=== PATIENT | male | born 1995 ===

== ENCOUNTER 2017-01-28 14:39 | Emergency (ER) | payer OTHER ==
[2017-01-28] MEDS ORDERED: CEPHALEXIN MONOHYDRATE 250 MG CAPSULE PO ONE (17:13)
--- NOTE | 2017-01-28 17:26 | ER PHYSICIAN DOCUMENTATION ---
Physician Documentation [facility] Name:Roman Hopkins Age:21 yrs Sex:Male :1995 Arrival Date:01/28/2017 Time:14:39 Bed1 Private MD: Andrea Earl Disposition: 01/28 18:00 Chart complete. tl1 Disposition: 01/28/17 16:47 Discharged to Home/Self Care. Impression: Tendon Injury. - Condition is Good. - Discharge Instructions: TENDON LACERATION - LACERATION, Tendon. - Prescriptions for Keflex 500 mg Oral - take 1 capsule by ORAL route every 8 hours for 5 days; 15 capsule. - Medical Reconciliation form form. - Follow up: Private Physician; When: 2 - 3 days; Reason: Recheck today's complaints, Continuance of care. - Problem is new. - Symptoms have improved. - Notes: GO TO [facility] AT 7 AM [facility] TO REPAIR YOUR TENDONS AT [address] KIP GOMEZ. THE OPERATING ROOM NUMBER IS [phone]. [facility], WHERE DR GOMEZ PRACTICES PHONE NUMBER IS [phone] HPI: 15:00 This 21 yrs old Unknown Male presents to ER via Private Vehicle with complaints of tl1 Finger Injury. 15:00 The patient or guardian reports a laceration, clean, 2 cm(s). The complaints affect the tl1 palmar aspect of proximal phalanx of right little finger. Context: The problem was sustained at work, resulted from Cutting a lemon with a knife.. Onset: The symptom(s)/episode began/occurred suddenly, just prior to arrival. Historical: - Allergies: No known drug Allergies; - Home Meds: 1. None - PMHx: None; - PSHx: None; - Tetanus: unknown Other pt is from [facility]. . - Ebola Screening: : Patient denies exposure to infectious person. Patient denies travel to an Ebola-affected area in the 21 days before illness onset. . - Immunization history: UTD. - Social history: Smoking status: Patient uses tobacco products, current some day smoker. Patient uses alcohol occasionally. Patient/guardian denies using marijuana. ROS: 15:00 MS/extremity: Positive for injury or acute deformity, laceration. tl1 15:00 All other systems are negative. Exam: 15:00 Constitutional: This is a well developed, well nourished patient who is awake, alert, tl1 and in no acute distress. 15:00 Cardiovascular: Rate: normal. 15:00 Respiratory: the patient does not display signs of respiratory distress. 15:00 Musculoskeletal/extremity: Extremities: grossly normal except: noted in the palmar aspect of middle phalanx of right little finger: laceration, BOTH TENDONS lacerated. He cannot flex at the PIP joint. He has no sensation to light touch on the ulnar aspect of his right fifth finger from the PIP distally and no 2 point discrimination. Sensation is normal on the radial aspect of that finger.. 15:00 Skin: injury, laceration(s), that can be described as clean, no foreign body, linear, with mild bleeding. Vital Signs: 14:43 BP 163 / 86; Pulse 83; Resp 16; Pulse Ox 94% on R/A; Pain 1/10; st Laceration: 16:00 Wound Repair of 2cm ( 0.8in ) subcutaneous laceration to palmar aspect of middle tl1 phalanx of right little finger. Linear shaped.. Distal neuro/vascular/tendon intact. Anesthesia: Digital block administered with 3 mls of 0.5% marcaine. Wound prep: Extensive cleansing, Copious irrigation. Skin closed with 4-0 Nylon using Interrupted sutures. Dressed with Bacitracin, tube gauze. Patient tolerated well. MDM: 15:00 Patient medically screened. tl1 16:00 Data reviewed: vital signs, nurses notes, and as a result, I will discharge patient. tl1 Counseling: I had a detailed discussion with the patient and/or guardian regarding: the historical points, exam findings, and any diagnostic results supporting the discharge/admit diagnosis, the need for outpatient follow up, for a referral to a specialist, a hand specialist, to return to the emergency department if symptoms worsen or persist or if there are any questions or concerns that arise at home. Response to treatment: the patient's symptoms have mildly improved after treatment, and as a result, I will discharge patient. Dispensed Medications: 17:05 Drug: Keflex 500 mg; Route: PO; st 17:26 Follow up: Response: No adverse reaction st Signatures: Twombly, Summer, RN RN st Elisabeth, Andrea, MD MD tl1
--- NOTE | 2017-01-28 17:26 | ER NURSING DOCUMENTATION ---
Nurse's Notes [facility] Name:Roman Hopkins Age:21 yrs Sex:Male :1995 Arrival Date:01/28/2017 Time:14:39 Bed1 Private MD: Diagnosis:Tendon Injury Presentation: 01/28 14:40 Presenting complaint: Patient states: pt was pealing a lemon with a knife and slipped st cutting his right pinky. Transition of care: Home. 14:40 Acuity: FIORELLA 3 st 14:40 Method Of Arrival: Private Vehicle st Triage Assessment: 14:42 General: Appears in no apparent distress, Behavior is cooperative. Pain: Complains of st pain in palmar aspect of middle phalanx of right little finger Pain currently is 1 out of 10 on a pain scale. Cardiovascular: No deficits noted. Respiratory: No deficits noted. GI: No deficits noted. Musculoskeletal: pt has feeling distal to the cut however he can not bend that finger. Injury Description: Laceration sustained to palmar aspect of middle phalanx of right little finger is full thickness, 0.5 to 2.5 cm long, bleeding moderately. Historical: - Allergies: No known drug Allergies; - Home Meds: 1. None - PMHx: None; - PSHx: None; - Tetanus: unknown Other pt is from [facility]. . - Ebola Screening: : Patient denies exposure to infectious person. Patient denies travel to an Ebola-affected area in the 21 days before illness onset. . - Immunization history: UTD. - Social history: Smoking status: Patient uses tobacco products, current some day smoker. Patient uses alcohol occasionally. Patient/guardian denies using marijuana. Screenin:44 Infectious Disease Risk None. Abuse screen: Denies threats or abuse. Denies injuries st from another. pt feels safe at home. Nutritional screening: No deficits noted. Vital Signs: 14:43 BP 163 / 86; Pulse 83; Resp 16; Pulse Ox 94% on R/A; Pain 1/10; st ED Course: 14:40 Patient arrived in ED. arc 14:40 Two, Summer, RN is Primary Nurse. st 14:[address] 14:44 Valuables Remains with patient Patient has correct armband on for positive st identification. Bed in low position. 14:45 Wound care located on palmar aspect of middle phalanx of right little finger was st Irrigation Normal Saline. 16:45 Andrea Barber MD is Attending Physician. tl1 Administered Medications: 17:05 Drug: Keflex 500 mg; Route: PO; st 17:26 Follow up: Response: No adverse reaction st Outcome: 16:47 Discharge ordered by . tl1 17:25 Discharged to home ambulatory. st 17:25 Condition: improved 17:25 Discharge instructions given to patient, Instructed on discharge instructions, follow up and referral plans. medication usage. 17:26 Patient [address] the ED[address] st Signatures: Ellie Flores, RN RN Andrea Owens MD MD tl1 Emi Lema, Reg Reg arc
== END 2017-01-28 17:26 | disposition home or self-care (01) ==
LOC: ER 14:39
DX: S61.216A Laceration without foreign body of right little finger without damage to nail, initial encounter (principal); S66.324A Laceration of extensor muscle, fascia and tendon of right ring finger at wrist and hand level, initial encounter; S66.126A Laceration of flexor muscle, fascia and tendon of right little finger at wrist and hand level, initial encounter; W26.0XXA Contact with knife, initial encounter; Y92.59 Other trade areas as the place of occurrence of the external cause; Y93.G1 Activity, food preparation and clean up; Y99.0 Civilian activity done for income or pay; F17.210 Nicotine dependence, cigarettes, uncomplicated
CPT/HCPCS: 12041; 99283; A0425; A0429